=== PATIENT | male | born 1980 | race American Indian/Alaskan Native ===

== ENCOUNTER 2017-04-22 01:47 | Emergency (ER) | payer OTHER ==
[2017-04-22 03:44] VITALS: BP 118/85
--- NOTE | 2017-04-22 04:12 | Emergency Department Report ---
HPI - General Chief Complaint: Extremity Injury, Lower Time Seen by Provider: 04/22/17 04:04 - HPI HPI: This is a 37-year-old male with no prior medical history who presents to ED complaining of right leg and arm pain this going on for a while over a month but gets worse every day. Patient states it goes away comes back. Patient states he had no trauma or injuries to the arm or the leg. Patient states he takes no medications and has no allergies to any medications. Patient denies any swelling, loss of sensation, loss of feeling or difficulty walking ED Past Medical Hx - Past Medical History Previous Medical History?: No - Surgical History Past Surgical History?: Yes Hx Appendectomy: Yes - Social History Smoking Status: Never Smoker Substance Use Type: None - Medications Home Medications: Home Medications Medication Instructions Recorded Confirmed Last Taken Type Cyclobenzaprine [Flexeril] 10 mg PO QHS PRN #20 tablet 04/22/17 Unknown Rx Ibuprofen [Motrin] 800 mg PO Q8HR PRN #30 tablet 04/22/17 Unknown Rx ED Review of Systems ROS: Stated complaint: R. LEG PAIN Other details as noted in HPI Constitutional: denies: chills, fever Eyes: denies: eye pain, eye discharge, vision change ENT: denies: ear pain, throat pain Respiratory: denies: cough, shortness of breath, wheezing Cardiovascular: denies: chest pain, palpitations Endocrine: no symptoms reported Gastrointestinal: denies: abdominal pain, nausea, diarrhea Genitourinary: denies: urgency, dysuria Musculoskeletal: myalgia. denies: back pain, joint swelling, arthralgia Skin: denies: rash, lesions Neurological: denies: headache, weakness, paresthesias Psychiatric: denies: anxiety, depression Hematological/Lymphatic: denies: easy bleeding, easy bruising Physical Exam - Physical Exam Vital Signs: Vital Signs 04/22/17 03:40 Temperature 98 F Pulse Rate 67 Respiratory 18 Rate Blood Pressure 118/85 Blood Pressure 118/85 [Right] O2 Sat by Pulse 100 Oximetry Physical Exam: GENERAL: Alert and oriented x3, no apparent distress, Normal Gait, atraumatic. HEAD: Head is normocephalic and a-traumatic. NECK: Supple. Non edematous, No carotid bruits. No lymphadenopathy or thyromegaly. No C-spine tenderness LUNGS: Symetrical with respiration, No wheezing, no rales or crackles, CTAB. HEART: S1, S2 present, regular rate and rhythm without murmur, no rubs, no gallops. Non tender to palpation EXTREMITIES/MUSCULOSKELETAL: No cyanosis, clubbing, rash, lesions or edema. Full ROM of upper and lower extremities bilaterally. UE/LE Pulses 2+ bilaterally. No calf tenderness bilaterally. Homans sign negative, all joints are nontender to palpation, nonedematous, no erythema, no distended veins NEUROLOGIC: The patient is cooperative with no focal neurologic deficits. Normal speech. Normal sensation in bilateral upper and lower extremities, SKIN: Warm and dry, No lesions, No ulceration or induration present. ED Course Vital Signs 04/22/17 03:40 Temperature 98 F Pulse Rate 67 Respiratory 18 Rate Blood Pressure 118/85 Blood Pressure 118/85 [Right] O2 Sat by Pulse 100 Oximetry ED Medical Decision Making - Medical Decision Making 37-year-old male presents to ED with myalgia of right leg and arm ED course: Vital signs are normal patient is in no acute distress Patient is able to ambulate without any problems, he can jump witout any problems. Discussed with patient follow-up with primary care physician. Discussed the patient and take medications as prescribed. Patient has no neurological deficit. Patient is alert and oriented 3 and understands all instructions given. Discussed drowsiness effect of Flexeril makes her drowsy and not to operate machinery while taking flexeril. She had no neurological deficit and states he will follow up with primary care physician as referred. I discussed patient if symptoms worsen to return to ED immediately Critical care attestation.: If time is entered above; I have spent that time in minutes in the direct care of this critically ill patient, excluding procedure time. ED Disposition Clinical Impression: Myalgia, Leg pain, right Disposition: [id number] TO HOME OR SELFCARE Is pt being admited?: No Does the pt Need Aspirin: No Condition: Stable Instructions: Trigger Point Pain (ED), Lumbar Radiculopathy (ED), Musculoskeletal Pain (ED) Additional Instructions: If symptoms worsen, pls Return to ED Prescriptions: Cyclobenzaprine [Flexeril] 10 mg PO QHS PRN #20 tablet PRN Reason: Muscle Spasm Ibuprofen [Motrin] 800 mg PO Q8HR PRN #30 tablet PRN Reason: Pain Referrals: BETH HAMILTON MD [Staff Physician] - 3-5 Days [facility] [Outside] - 3-5 Days [facility] [Outside] - 3-5 Days [facility] [Outside] - 3-5 Days Forms: Work/School Release Form Time of Disposition: 04:48
== END 2017-04-22 05:09 | disposition home or self-care (01) ==
LOC: ED 01:47
DX: M79.604 Pain in right leg (principal); M79.601 Pain in right arm
CPT/HCPCS: 99282

== ENCOUNTER 2021-07-30 11:11 | Outpatient (CLI) | payer OTHER ==
[2021-07-30 12:21] LABS: Blood Urea Nitrogen 15 mg/dL (9-20)
--- NOTE | 2021-07-30 14:43 | Cat Scan Report ---
CT angio head INDICATION / CLINICAL INFORMATION: 41 years Male; HEADACHE. [id number] 100 ML. TECHNIQUE: Thin cut axial images obtained through the head during IV bolus contrast administration. S agittal, coronal, and 3 plane MIP reconstructions performed by the technologist. NASCET type criteria used evaluate stenoses. Automated exposure control utilized for radiation reduction purposes. COMPARISON: None available. FINDINGS: INTERNAL CAROTID ARTERIES: There is no significant focal stenosis involving intracranial ICAs by NASC ET to criteria. 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 CEREBRAL ARTERIES: The cerebral arteries and adjacent segments appear to demonstrate appropriate juarez herminia without significant stenosis. ANEURYSM: None identified. ADDITIONAL FINDINGS: Remainder of the surrounding soft tissues are grossly normal. 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 Signer Name: Sanchez Tyler MD Signed: 07/30/2021 2:38 PM Workstation Name: [id number]
== END 2021-07-30 11:12 | disposition home or self-care (01) ==
LOC: CT 11:11
PROVIDERS: ATTEND Internal Medicine Hematology & Oncology
DX: R51.9 Headache, unspecified (principal); M54.2 Cervicalgia; M54.6 Pain in thoracic spine
CPT/HCPCS: 36415; 70496; 82565; 84520; Q9967